=== PATIENT | male | born 1985 | race Caucasian/White ===

== ENCOUNTER 2021-09-09 09:14 | Emergency (ER) | payer OTHER, SELFPAY ==
[2021-09-09 09:32] VITALS: BP 163/100; PULSE 78; RESP 14; TEMP 37.3; O2SAT 100
--- NOTE | 2021-09-09 09:55 | ED.NAVMDI ---
HPI - Nausea/Vomiting/Diarrhea General Chief complaint: Nausea/Vomiting/Diarrhea Stated complaint: Abdominal Pain,Diarrhea Time Seen by Provider: 09/09/21 09:20 Source: patient Mode of arrival: ambulatory Limitations: no limitations History of Present Illness HPI Narrative: 36-year-old male presents to [facility] with complaints of left upper quadrant abdominal pains and diarrhea for the past 3 weeks. Patient reports that the pains are worsening. Patient reports 5-15 stools per day. Patient reports that he currently is not her primary care provider is unable to get an appointment for 4 to 6 weeks. Patient denies fever, bodies, chills, nausea or vomiting. Patient denies sick contact. Patient denies recent travel MD elicited complaint: diarrhea and abdominal pain Onset (ago): week(s) (3) Associated nausea: No Associated abdominal pain: Yes Location of pain: LUQ Exacerbating factors: none Relieving factors: none Related Data Allergies Allergy/AdvReac Type Severity Reaction Status Date / Time cortisone Allergy Other Verified 09/09/21 09:44 prednisone Allergy Other Verified 09/09/21 09:44 Review of Systems Constitutional: Constitutional: Denies chills and Denies fever(s) Cardiovascular: Cardiovascular: Denies chest pain and Denies rapid heart rate Respiratory: Respiratory: Denies cough and Denies dyspnea Gastrointestinal: Gastrointestinal: Reports abdominal pain, Reports diarrhea, Denies nausea and Denies vomiting Musculoskeletal: Musculoskeletal: Denies arthralgias Integumentary/Breasts: Skin/Breast: Denies rash [facility] Family History Family History (Updated 09/09/21 @ 09:57 by Juana Youngblood APRN) Mother Acute myocardial infarction Social History Social History (Updated 09/09/21 @ 09:57 by Juana Youngblood APRN) Smoking status: Current every day smoker Comments At time of signature, I agree with nursing past medical, surgical, social and family history. There is no relevant family history pertinent to the presenting complaint. Exam Const: General: healthy appearing and no acute distress Orientation/consciousness: patient oriented x3 Neck: Neck: normal visual inspection and no lymphadenopathy Resp: Effort & Inspection: normal respiratory effort Auscultation: clear to auscultation bilaterally Cardio: Rate: regular rate Rhythm: regular rhythm GI: GI Palp: Yes Soft to palpation and Yes Tenderness to palpation present (GI) (Moderate tenderness to left upper quadrant upon palpation) Auscultation: normal bowel sounds Skin: General skin exam: normal color Rashes: no rashes Neuro: General: patient oriented x3 and moves all extremities Psych: Appearance: grossly normal Mental Status: mental status grossly normal Affect: normal affect Attitude: cooperative Thought content: Yes Normal thought content present Course Vital Signs Vital signs: Vital Signs Temperature 37.3 C 09/09/21 09:32 Pulse Rate 78 09/09/21 09:32 Respiratory Rate 14 09/09/21 09:32 Blood Pressure 163/100 H 09/09/21 09:32 Pulse Oximetry 100 09/09/21 09:32 Temperature 37.3 C 09/09/21 09:32 Pulse Rate 78 09/09/21 09:32 Respiratory Rate 14 09/09/21 09:32 Blood Pressure 163/100 H 09/09/21 09:32 Pulse Oximetry 100 09/09/21 09:32 MDM - Nausea/Vomiting/Diarrhea MDM Narrative Medical decision making narrative: Due to worsening abdominal pain diarrhea, patient will be referred to [facility] emergency room for labs, imaging and higher level of care. Report called to Ann VOGEL. Dr. Luis Fernando LESLIE. Transfer form completed and signed. Differential Diagnosis Differential diagnosis: Likely traveler's diarrhea, clostridium difficile infection and dehydration Critical Care Time Critical Care Time Critical Care Time: No Discharge Plan Discharge Clinical Impression: Abdominal pain Qualifiers: Abdominal location: left upper quadrant Qualified Code(s): R10.12 - Left upper quadrant pain Diarrh
== END 2021-09-09 10:00 | disposition short-term general hospital (02) ==
PROVIDERS: Emergency Provider Nurse Practitioner Family
DX: R10.12 Left upper quadrant pain (principal); R19.7 Diarrhea, unspecified; F17.200 Nicotine dependence, unspecified, uncomplicated; I10 Essential (primary) hypertension
CPT/HCPCS: 99202; G0463

== ENCOUNTER 2024-05-22 12:43 | Emergency (ER) | payer OTHER, SELFPAY ==
[2024-05-22 12:50] VITALS: BP 148/88; PULSE 68; RESP 20; TEMP 36.8; O2SAT 100
--- NOTE | 2024-05-22 12:54 | ED.GENADULT ---
HPI - General Adult General Chief complaint: Extremity Injury, Upper Stated complaint: Left Elbow Injury Source: patient Mode of arrival: ambulatory Limitations: no limitations History of Present Illness HPI narrative: 39-year-old male presented for complaint of left elbow pain for about 6 weeks. Pain follows lifting heavy logs burning stented amount of time. Pain is to the outer elbow with movement, and to the bicep area when at rest. He denies swelling, redness, or warmth to the elbow. Has not taken anything for pain. Denies radiating pain, numbness, tingling or weakness to the hand. Related Data Allergies Allergy/AdvReac Type Severity Reaction Status Date / Time cortisone Allergy Other Verified 05/22/24 13:11 prednisone Allergy Other Verified 05/22/24 13:11 Review of Systems Review of Systems: CONSTITUTIONAL: Denies body aches, fever, chills CARDIOVASCULAR: Denies chest pain, palpitations, or edema. RESPIRATORY: Denies cough or dyspnea. SKIN: Denies rash, itching, or wounds. MUSCULOSKELETAL: Reports elbow pain NEUROLOGIC: Denies headache, numbness, tingling, or weakness. All systems reviewed & are unremarkable except as noted in HPI and below PMFSH Past Medical History Medical History (Updated 05/22/24 @ 13:23 by Linda Gordillo APRN) HTN (hypertension) Narcolepsy Sleep apnea Family History Family History Mother Acute myocardial infarction Social History Social History (Updated 05/22/24 @ 13:23 by Linda Gordillo APRN) Smoking packs per day: 2 Smoking cigarettes per day: 40.0 Smoking status: Current every day smoker Tobacco type: cigarettes Comments At time of signature, I have reviewed and agree with nursing past medical, surgical, social and family history unless otherwise noted. Please see nursing chart for further information. There is no relevant family history pertinent to the presenting complaint Exam Narrative: GENERAL: Well-appearing CHEST: Speaks in full sentences. No respiratory distress. HEART: Regular rate and rhythm. Normal and equal peripheral pulses. EXTREMITIES: LUE has normal strength and sensation, decreased range of motion with flexion of elbow due to subjective pain with movement. Pain to the lateral aspect is reported with flexion.No ecchymosis, erythema, warmth or swelling, No point tenderness. No open wounds, or obvious deformity; alignment normal, pulse palpable and equal bilaterally, skin warm, dry, pink. Capillary refill less than 3 seconds. SKIN: Warm, dry, no rash. NEURO: Alert and oriented x3. PSYCH: Normal mood and affect Course Course Emergency Course: Patient is aware of diagnosis, understands and agrees to treatment plan. Anticipatory guidance given. Patient agrees to follow-up as directed and is aware of reasons to seek care at the emergency department. Portions of this record may have been created with voice recognition software Level of Care: Express Care Visit Vital Signs Vital signs: Vital Signs Temperature 98.3 F 05/22/24 12:50 Pulse Rate 68 05/22/24 12:50 Respiratory Rate 20 05/22/24 12:50 Blood Pressure 148/88 H 05/22/24 12:50 Pulse Oximetry 100 05/22/24 12:50 Oxygen Delivery Room Air 05/22/24 12:50 Temperature 98.3 F 05/22/24 12:50 Pulse Rate 68 05/22/24 12:50 Respiratory Rate 20 05/22/24 12:50 Blood Pressure 148/88 H 05/22/24 12:50 Pulse Oximetry 100 05/22/24 12:50 Oxygen Delivery Room Air 05/22/24 12:50 Reviewed Medical Decision Making MDM Narrative Medical decision making narrative: Discussed physical exam findings. Advised supportive measures and signs/symptoms to go to the ER. Pt is appropriate for outpt treatment and f/u. Differential Diagnosis Differential Diagnosis: osteoarthritis, elbow dislocation, septic bursitis, epicondylitis, biceps tendon rupture Vital Signs Vital Signs: Vital Signs Temp
== END 2024-05-22 13:30 | disposition home or self-care (01) ==
PROVIDERS: Emergency Provider Nurse Practitioner Family
DX: M25.522 Pain in left elbow (principal); I10 Essential (primary) hypertension; F17.210 Nicotine dependence, cigarettes, uncomplicated
CPT/HCPCS: 99213; G0463